=== PATIENT | male | born 1995 | race Caucasian/White ===

== ENCOUNTER 2022-10-06 07:04 | Emergency (ER) | payer OTHER ==
[~2022-10-06] VITALS: Ht 175.3 cm; Wt 72.6 kg
[2022-10-06 07:05] VITALS: BP_SYST 110
--- NOTE | 2022-10-06 07:10 | NUR ---
BROUGHT IN BY [facility] AND PLACED IN BED #4, TRIAGED AND WILL ASSUME CARE.
[2022-10-06] MEDS ORDERED: IBUPROFEN 600 MG TABLET PO ONE (07:15)
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
[2022-10-06 07:30] LABS: BASOPHILS % (AUTO) 0.6 % (0.0-2.0); EOSINOPHILS # (AUTO) 0.1 K/uL (0.0-0.4); EOSINOPHILS % (AUTO) 1.6 % (0.0-4.0); HEMATOCRIT 40.3 % (36-54); HEMOGLOBIN 14.4 g/dL (14.0-18.0); LYMPHOCYTES # (AUTO) 1.2 K/uL (1.0-5.5); LYMPHOCYTES % (AUTO) 23.3 % (20.5-51.5); MEAN CORPUSCULAR HEMOGLOBIN 33 pg (27-31); MEAN CORPUSCULAR HGB CONC 36 % (32-36); MEAN CORPUSCULAR VOLUME 91 fL (79.0-98.0); MONOCYTES # (AUTO) 0.4 K/uL (0.0-1.0); MONOCYTES % (AUTO) 7.5 % (1.7-9.3); NEUTROPHILS # (AUTO) 3.4 K/uL (1.8-7.7); PLATELET COUNT (AUTO) 195 K/uL (130-430); RED BLOOD CELL COUNT(AUTO) 4.42 MIL/uL (4.2-6.2); RED CELL DISTRIBUTION WIDTH 12.9 % (9.0-15.0); WHITE BLOOD COUNT (AUTO) 5.1 K/uL (4.8-10.8)
[2022-10-06 07:44] LABS: ANION GAP 7 (5-15); CHLORIDE 104 mmol/L (98-107); CREATININE 0.89 mg/dL (0.55-1.30); GLUCOSE 91 mg/dL (70-99); UREA NITROGEN, BLOOD 20 mg/dL (8-21)
--- NOTE | 2022-10-06 07:54 | NUR ---
CT CONSENT SIGNED AND TAKEN TO CT [facility]IA [facility]
[2022-10-06 07:59] LABS: ALBUMIN 3.8 g/dL (3.4-4.8); ASPARTATE AMINOTRANSFERASE 23 U/L (10-37); TOTAL BILIRUBIN 0.3 mg/dL (0.0-1.0)
[2022-10-06 08:01] LABS: ALANINE AMINOTRANSFERASE 28 U/L (12-78); GFR AFRICAN AMERICAN 134 mL/min (>90)
--- NOTE | 2022-10-06 08:15 | NUR ---
TAKEN TO RADIOLOGY VIA [facility]
--- NOTE | 2022-10-06 09:00 | NUR ---
RETURNED FROM RADIOLOGY, MOTHER AT BEDSIDE FOR EVALUATION
== END 2022-10-06 10:50 | disposition home or self-care (01) ==
LOC: SED 07:04
DX: R07.89 Other chest pain (principal); R51.9 Headache, unspecified; M79.662 Pain in left lower leg; Z79.899 Other long term (current) drug therapy; V89.2XXA Person injured in unspecified motor-vehicle accident, traffic, initial encounter; Y93.89 Activity, other specified; Y92.89 Other specified places as the place of occurrence of the external cause; Y99.8 Other external cause status
CPT/HCPCS: 99285; 71260; 80053; 85025; 84484; 36415; 93005; 73560; 73610; 73630; 76376; Q9967